=== PATIENT | male | born 1980 | race Caucasian/White ===

== ENCOUNTER 2016-08-24 03:18 | Emergency (ER) | payer BC, OTHER ==
[2016-08-24] MEDS ORDERED: Sodium Chloride 0.9% 5 ML Syringe FLUSH PRN (04:20)
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
[2016-08-24 04:41] LABS: CHLORIDE,CL 101 mmol/L (98-115); SODIUM,NA 143 mmol/L (136-145)
[2016-08-24] MEDS ORDERED: Ketorolac 30 MG/ML SDV IVPUSH ONE (05:14)
[2016-08-24 05:31] VITALS: BP 136/72
== END 2016-08-24 05:55 | disposition home or self-care (01) ==
LOC: KA.ED 03:18
DX: S80.12XA Contusion of left lower leg, initial encounter (principal); Z79.82 Long term (current) use of aspirin; Z98.890 Other specified postprocedural states; V89.2XXA Person injured in unspecified motor-vehicle accident, traffic, initial encounter; Y92.410 Unspecified street and highway as the place of occurrence of the external cause
CPT/HCPCS: 36415; 72040; 73590; 80048; 80305; 85025; 85610; 85730; 96374; 99285; G0480; J1885